=== PATIENT | male | born 1985 | race Two or more races ===

== ENCOUNTER → 2017-01-21 | Outpatient (CLI) | payer OTHER | LOC: BRMIMAGING 12:02 | PROVIDERS: ATTEND Internal Medicine | DX: M25.572 Pain in left ankle and joints of left foot (principal); M79.89 Other specified soft tissue disorders | CPT/HCPCS: 73610-PO ==

== ENCOUNTER → 2017-04-10 | Outpatient (CLI) | payer OTHER | LOC: BRMIMAGING 15:38 | PROVIDERS: ATTEND Internal Medicine | DX: R10.9 Unspecified abdominal pain (principal); W19.XXXA Unspecified fall, initial encounter; R93.8 Abnormal findings on diagnostic imaging of other specified body structures | CPT/HCPCS: 73521-PO ==